=== PATIENT | male | born 1965 | race Caucasian/White ===

== ENCOUNTER 2024-04-27 13:40 | Emergency (ER) | payer OTHER, MEDICARE, SELFPAY ==
[2024-04-27 13:46] VITALS: BP 134/90
[2024-04-27 14:13] LABS: % Basophils 0.7 % (0-2); % Immature Granulocytes 0.3 % (0-0.5); % Lymphocytes 30.1 % (20.5-51.1); % Monocytes 11.3 % (1.7-9.3); % Neutrophils 55.6 % (42.2-75.2); Absolute Basophils 0.1 10^3/uL (0-0.2); Absolute Eosinophils 0.1 10^3/uL (0-0.7); Absolute Lymphocytes 2.1 10^3/uL (1.2-3.4); Absolute Monocytes 0.8 10^3/uL (0.1-0.6); Absolute Neutrophils 3.9 10^3/uL (1.4-6.5); Hematocrit 44.8 % (39.0-52.0); Hemoglobin 15.4 g/dL (13.0-18.0); Mean Corp Hgb Conc. 34.4 g/dL (33.0-37.0); Mean Corpuscular Hgb 31.7 pg (27.0-31.0); Mean Corpuscular Volume 92.2 fL (80.0-94.0); Mean Platelet Volume 10.7 fL (7.4-10.4); Nucleated Red Blood Cells % 0 % (-); Platelet Count 224 10^3/uL (130-400); Red Blood Cell Count 4.86 10^6/uL (4.70-6.10); Red Cell Dist. Width 13.1 % (11.5-14.5)
[2024-04-27 14:40] LABS: ALT (SGPT) 25 U/L (0-50); AST (SGOT) 32 U/L (17-59); Albumin 4.3 g/dl (3.5-5.0); Alkaline Phosphatase 74 U/L (38-126); Blood Urea Nitrogen 17 mg/dl (9-20); Calcium 9.3 mg/dl (8.4-10.2); Carbon Dioxide 23 mmol/L (22-30); Chloride 105 mmol/L (98-107); Glucose 100 mg/dl (70-99); Potassium 4.9 mmol/L (3.5-5.1); Sodium 139 mmol/L (135-145); Total Bilirubin 0.7 mg/dl (0.2-1.3); Total Protein 6.8 g/dl (6.3-8.2); eGFR 58.62
[2024-04-27 14:49] LABS: Troponin I < 0.012 ng/ml
[2024-04-27 15:40] VITALS: BP 136/76
[2024-04-27 18:05] VITALS: BP 142/94
[2024-04-27 19:09] LABS: NT-proBNP 60.7 pg/ml
[2024-04-27 19:15] VITALS: BP 124/90
--- NOTE | 2024-04-27 19:34 | ED.GENMED ---
History of Present Illness
General
Chief Complaint: Chest Pain
Source: patient
Exam Limitations: none
Time Seen by Provider: 04/27/24 17:43
History of Present Illness
History of Present Illness:
This is a 59-year-old male who presents for evaluation for lower extremity swelling. The patient admits that for 3 to 6 months or longer, he has had these intermittent episodes of sweating, chest pain, and palpitations. He states sometimes he
feels like he blacks out. He states this has been ongoing for months. Patient states that he has a history of SVT, A-fib, WPW with ablation. The patient states that he sort of has been frustrated since he has had ablations in the past and did not
really deal with it again. He has not followed up with his occupational health specialist for the symptoms despite the fact that has been going on for months. He mostly presents because he has had lower extremity swelling and he is concerned because he is going on
a trip soon to [place]. No current chest pain. No current shortness of breath. No current palpitations. No leg cramping. No history of blood clots
Past History
Past History
ED Past Medical History: Arrthythmia (SVT, Atrial fib, WPW), Asthma and Other (Hernia's)
ED Past Surgical History: None
Social History
Tobacco: Non-smoker
Alcohol: None
Personal: Partner (Same sex)
Living: with family
Phy Exam
Physical Exam
Physical Exam:
CONSTITUTIONAL Patient alert and oriented to person, place and time. Well-appearing. Vital signs reviewed.
HEAD atraumatic, normocephalic.
EYES eyelids normal to inspection, Pupils equally round and reactive to light, Extraocular muscles intact, Conjunctiva normal, Sclera normal.
NECK normal range of motion, Trachea midline, no jugular venous distention.
RESPIRATORY CHEST No respiratory distress noted, Chest expansion equal, Bilateral breath sounds clear.
CARDIOVASCULAR regular rate and rhythm, Heart sounds normal.
ABDOMEN abdomen nontender, Bowel sounds normal. No distention.
BACK normal inspection, no obvious deformities
UPPER EXTREMITY range of motion normal, Motor strength normal, no cyanosis, no edema.
LOWER EXTREMITY range of motion normal, Motor strength normal, no cyanosis, trace bilateral edema.
NEURO Speech normal, No focal motor deficits, [place] coma scale 15, Memory normal, Cranial Nerves intact to screening exam.
SKIN skin warm, dry, and normal in color.
PSYCHIATRIC patient oriented to person place and time, Normal affect.
Scores
Heart Score for Chest Pain Patients
STEMI patient?: No
History: Slightly or Non-Suspicious
ECG: Normal
Age: >45 - <65 years
Risk Factors: 1 or 2 Risk Factors
Troponin: </= Normal Limit
Heart Score for Chest Pain Patients: 2
Heart Score Risk: 2.5% MACE over next 6 weeks
Course
Orders/Labs/Results
Orders:
Orders
04/27/24
ECG [Electrocardiogram (*1)] Urgent
Reason for Study: Chest Pain
04/27/24 14:00
CMP [Comprehensive Metabolic Panel] Urgent
Complete Blood Count/With Diff Urgent
NT-proBNP Urgent
Comment: ADD ON
Troponin I Urgent
04/27/24 18:23
Add On- LAB Urgent
Tests Added?: pro BNP
04/27/24 18:41
CR Chest - 2 Views Urgent
Comment:
Reason For Exam: cp, leg swelling
US Periph Venous LOWER Ext Aric Urgent
Comment:
Reason For Exam: edema
Abnormal Lab Results
04/27/24
14:00
MCH 31.7 H pg
(27.0-31.0)
MPV 10.7 H fL
(7.4-10.4)
Absolute Monos (auto) 0.8 H 10^3/uL
(0.1-0.6)
Monocytes % 11.3 H %
(1.7-9.3)
Creatinine 1.4 H mg/dL
(0.7-1.3)
Glucose 100 H mg/dl
(70-99)
04/27/24 14:00
04/27/24 14:00
Vital Signs
Initial and Last Documented VS:
Initial Vital Signs
Pulse Resp BP Pulse Ox
73 16 134/90 97
04/27/24 13:46 04/27/24 13:46 04/27/24 13:46 04/27/24 13:46
Last Documented Vital Signs
Temp Pulse Resp BP Pulse Ox
98.3 F 58 15 124/90 97
04/27/24 15:40 04/27/24 19:53 04/27/24 19:53 04/27/24 19:15 04/27/24 19:53
MDM/Problems Addressed
MDM/Problems Addressed:
bilateral edema
*Radiology
Radiology exam reviewed: radiology read reviewed and all reviewed NAD by ED Provider
*Pulse Oximetry
Patient hypoxic: no
*EKG
Interpreted by ED Provider?: Yes
Interpretation: abnormal
Rate: normal
Rhythm: sinus
QRS Pattern: right bundle branch block
Ischemia: no ischemia
*Protective Signal Repairer Helper Interpretation
Rate: normal
Interpretation: normal
Rhythm: sinus
*Critical Care Note
Total Time (30-74mins, 75-104mins- exclusive of procedures): Not Applicable
Data Reviewed
Source: patient and family
Further Testing Considered But Not Given:
Considered D-dimer study but will check lower extremity ultrasound.
Patient Management
Escalation/DeEscalation of care consider admission/obs:
ED workup negative. I did encourage him to follow with his occupational health specialist given his symptoms that are intermittent. Do not suspect ACS but do have some concern he could be having arrhythmias.
ED Attending Note
-
Portions of this chart may have been created with voice recognition software.� Occasional wrong word or��sound alike� substitutions may have occurred due to the inherent limitations of voice recognition software.
Discharge Plan
Departure
Patient Disposition: Home (Routine Discharge)
Date of Disposition: 04/27/24
Time of Disposition: 20:50
Patient with high blood pressure during this ER visit?: Yes
Discharge Problem:
Edema, Chest pain
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
Prescriptions:
No Action
verapamil 180 MG tablet extended release
180 mg PO DAILY
pantoprazole 40 MG tablet,delayed release (DR/EC)
40 mg PO DAILY
montelukast 10 MG tablet
10 mg PO DAILY
albuterol sulfate 1 PUFF HFA aerosol inhaler
2 puff inhalation R [id number] PRN (Reason: sob)
vilazodone [Viibryd] 40 MG tablet
40 mg PO DAILY
apixaban [Eliquis] 2.5 MG tablet
5 mg PO BID
dolutegravir-lamivudine [Dovato] 1 EACH tablet
1 ea PO DAILY
testosterone [AndroGel] 1.25 GM gel in packet
1.25 gm TD DAILY
flecainide 100 MG tablet
100 mg PO BID
propranolol 20 MG tablet
100 mg PO DAILY
loratadine 10 MG tablet
10 mg PO DAILY
amoxicillin-pot clavulanate 1 TABLET tablet
1 tab PO BID Qty: 14 0RF
Referrals:
NONE,* [Family Provider] -
Activity Restrictions/Additional Instructions:
Please see your doctor or occupational health specialist in follow-up next 3 to 5 days. Return immediately for chest pain, shortness of breath, palpitations, weakness of any kind or any other concerns.
Interventions
Interventions:
*Risk Screen - Suicide Last Done: 04/27/24 18:14
*General Assessment Last Done: 04/27/24 13:46
*Neglect/Abuse Screening Last Done: 04/27/24 18:14
*ED COVID-19 Vaccine History Last Done: 04/27/24 13:46
ED- Cardiac Assessment Last Done: 04/27/24 18:13
Discharge Date and Time
Print Language: LEBANESE
[2024-04-27 20:00] VITALS: BP 125/86
[2024-04-27 21:00] VITALS: BP 132/80
== END 2024-04-27 21:12 | disposition home or self-care (01) ==
LOC: EMR 13:40
PROVIDERS: Emergency Medicine; EMERGENCY PHYSICIAN Emergency Medicine
DX: R60.0 Localized edema (principal); R07.89 Other chest pain; I47.10 Supraventricular tachycardia, unspecified; I48.91 Unspecified atrial fibrillation; I45.6 Pre-excitation syndrome; J45.909 Unspecified asthma, uncomplicated; Z86.79 Personal history of other diseases of the circulatory system
CPT/HCPCS: 99284; 71046; 80053; 83880; 84484; 85025; 93005; 93970